=== PATIENT | male | born 1985 | race African-American/Black ===

== ENCOUNTER → 2021-04-30 | Outpatient (CLI) | payer OTHER ==
--- NOTE | ~2021-04-30 | PFR/MVV ---
[facility] [place] [address] PULMONARY FUNCTION MVV/REPORT Name: CLEMENTE YOST Room #: REG RENNY Amaro#: [id number] Admission: 04/30/21 Attend Phys: Norbert Pradhan DO Discharge: Date of : 83 Report #: [id number] THIS REPORT FOR: //name// >> SPIROMETRY: (BTPS) Height: 73 in cm Weight: 200 lbs kg Exam Date: 04/30/21 PRE-RX POST-RX PRED BEST %PRED BEST %PRED %CHG FVC LITERS . 5.66 . 3.99 . 70 . 5.19 . 92 . 30 FEV1 LITERS . 4.30 . 2.83 . 66 . 4.00 . 93 . 41 FEV1/FVC % . 76 . 71 . 94 . 77 . 102 . 9 GUK78-90% L/Sec . 4.32 . 2.07 . 48 . 3.35 . 77 . 62 PEF L/SEC . 10.17 . 5.59 . 55 . 9.47 . 93 . 69 FEF50/FIF50 UNITLESS . 5.80 . 2.72 . 47 . 4.04 . 70 . 48 MVV L/Min . . . f 1/Min . . . >> LUNG VOLUMES: (BTPS) PRE-RX POST-RX PRED AVG %PRED AVG %PRED %CHG VC Liters . 5.66 . 5.14 . 91 . . . TLC Liters . 7.74 . 6.30 . 81 . . . RV Liters . 2.17 . 1.16 . 53 . . . RV/TLC % . 29 . 18 . 63 . . . FRC PL Liters . 4.08 . 2.17 . 53 . . . FRC N2 Liters . 4..08 . . . . . ERV Liters . 1.87 . 1.08 . 58 . . . IC Liters . 3.75 . 4.13 . 110 . . . >> DIFFUSION: DLCO ml/Min/mmHg . 31.5 . 45.3 . 144 . . . DL Amado ml/Min/mmHg . 31.5 . 45.3 . 144 . . . DLCO/VA ml/Min/mmHg . 4.40 . 8.57 . 195 . . . VA Liters . 7.70 . 5.28 . 69 . . . COMMENTS: COMMENTS: >> RESISTANCE: [facility] [address] [place] [address] PULMONARY FUNCTION MVV/REPORT Name: CLEMENTE YOST Room #: REG Madison Rocha.#: [id number] Admission: 04/30/21 Attend Phys: Norbert Pradhan DO Discharge: Date of : 83 Report #: [id number] PRE-RX PRED AVG %PRED Raw Total cmH20/L/Sec . . 3.77 . Raw Insp cmH20/L/Sec . . 1.81 . Raw Exp cmH20/L/Sec . . 1.24 . Raw cmH20/L/Sec . 1.07 . 1.07 . 101 Gaw L/Sec/cmH20 . .0979 . 0.931 . 95 sRaw cmH20 Sec . 4.35 . 5.90 . 136 sGaw l/cmH20 Sec . 0.230 . 0.169 . 74 Vtq Liters . . 5.50 . # = OUTSIDE 95% CONFIDENCE INTERVAL CALIBRATION: PRED: 3.00 ACTUAL: EXP 3.01 INSP 3.02 [id number] [facility]- [id number] >> INTERPRETATION/IMPRESSION: PULMONARY FUNCTION STUDIES SPIROMETRY: FEV1 is 2.83 liters (66% predicted), FVC is 3.99 liters (70% predicted), FEV1/FVC ratio is 71%. There is a significant response to bronchodilator therapy. FEV1 increased to 4.0 liters (41% change) and FVC increased to 5.19 liters (30% change). Total lung capacity is 6.30 liters (81% predicted). Vital capacity is 5.14 liters (91% predicted). Diffusing capacity has increased to 144%. IMPRESSION: Pulmonary function studies are consistent with a mild obstructive airflow defect with a significant response to bronchodilator therapy. Obstructive airflow does resolve with bronchodilator therapy. Lung volumes are slightly reduced. Diffusing capacity is increased. By: Kurt Gloria MD /nt
== END ==
LOC: PULREHAB 13:38 → OR 13:38
PROVIDERS: ATTEND Chiropractor
DX: J45.998 Other asthma (principal); Z20.822 Contact with and (suspected) exposure to COVID-19